=== PATIENT | male | born 1960 | race Caucasian/White ===

== ENCOUNTER → 2017-08-01 10:36 | Outpatient (CLI) | payer BC ==
[2015-04-12 13:59] VITALS: BMI 37.9
[~2017-08-01 10:36] MED LIST: BAYER CHEWABLE81 MG PO; CRESTOR20 MG PO; EFFIENT10 MG PO; NORVASC5 MG PO; PRILOSEC20 MG PO; SYNTHROID75 MCG PO
== END | disposition home or self-care (01) ==
LOC: D.RT 10:36
DX: R06.02 Shortness of breath (principal)

== ENCOUNTER 2018-05-10 07:28 | Day surgery (SDC) | payer BC ==
[~2018-05-10] VITALS: Ht 177.8 cm; Wt 111.1 kg
--- NOTE | ~2018-05-10 | HP ---
PATIENT: JEREMIAH PRAKASH MEDICAL RECORD: [id number] ACCOUNT: [id number] LOCATION:[facility] : 62 ADMISSION DATE: 05/10/18 PCP: HISTORY AND PHYSICAL EXAMINATION HISTORY: Mr. Prakash is a 58-year-old male with hoarseness and dysphagia for a couple of months. He has been noted to have a laryngeal lesion. He is being admitted for direct laryngoscopy and biopsy. PAST MEDICAL HISTORY: Includes hypertension, coronary artery disease, liver disease. PAST SURGICAL HISTORY: Includes cholecystectomy in 2013, three stents in 2015. CURRENT MEDICATIONS: Include ezetimibe, tamsulosin, rosuvastatin, lisinopril, levothyroxine, amlodipine, finasteride, Nexium. Aspirin 81 mg has been held. ALLERGIES: No known drug allergies. PHYSICAL EXAMINATION: GENERAL: He is healthy appearing, good historian. He has got moderate to severely hoarse voice. FACE: Normal, symmetric, no lesions. EYES: Sclerae and conjunctivae are normal. EARS: Canals and TMs are normal. NOSE: He has some septal deviation. No masses, polyps, or drainage. ORAL CAVITY AND OROPHARYNX: He is status post UP3. No trismus. Tongue protrudes in midline. Pharynx is normal. NECK: No masses. He has got some ptotic submandibular glands. Nontender. Flexible laryngoscopy reveals supraglottic fullness, especially on the medial aspect of the right AE fold and some granular changes around even the left side of the AE fold. CHEST: Clear. CARDIOVASCULAR: Regular rate and rhythm. No murmur. EXTREMITIES: Normal. IMPRESSION: Supraglottic laryngeal lesion, hoarseness, dysphagia. PLAN: Direct laryngoscopy and biopsies. TRANSINT:[id number] Voice Confirmation ID: [id number] DOCUMENT ID: [id number] KATTY RAMIREZ MD CC: [id number] DICTATION DATE: 05/08/18 1456 POOL INSTALLER: 05/08/[address] [address]
--- NOTE | ~2018-05-10 | OP ---
PATIENT NAME: JEREMIAH PRAKASH MEDICAL RECORD: [id number] :62 [facility] ADMISS[facility] DATE: SURGEON: YOVANY BROWN MD DATE OF OPERATION: 05/10/2018 PREOPERATIVE DIAGNOSES: Laryngeal lesion and hoarseness. POSTOPERATIVE DIAGNOSES: Laryngeal lesion and hoarseness. PROCEDURE: Direct laryngoscopy and biopsies. SURGEON: Yovany Brown MD ANESTHESIA: General orotracheal. BLOOD LOSS: 1 cc. SPECIMENS: Multiple biopsies from the medial aspect of the right AE fold and medial aspect of the right arytenoid. 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 COMPLICATIONS: None. DISPOSITION: Recovery stable. DESCRIPTION OF PROCEDURE: He was brought to the operating room and placed in supine position, sedated and intubated by anesthesia. The eyes were taped. Table was turned 90 degrees. Head drape was applied and he was positioned for laryngoscopy. Using a headlight, the oral cavity and oropharynx were examined. The base of tongue was palpated. Tonsil fossa was palpated. No lesions were identified. A Kleinsasser J laryngoscope was inserted and used to evaluate the piriforms, postcricoid area, lateral pharyngeal garcia, posterior pharyngeal wall, all were unremarkable. He was missing his lower central mandibular teeth, but had upper teeth and I could expose the arytenoids, but not much further forward, so I changed to an anterior commissure scope and was able to expose the larynx much better. The cords looked good, but he had an exophytic lesion involving the medial surface of the right AE fold, most of the arytenoid on the right, the posterior glottic area extending on to the medial aspect of the left arytenoid as well. Biopsies were taken with an upbiting 2 mm biopsy forceps. Frozen was sent. This returned invasive squamous cell carcinoma. Multiple additional biopsies were taken as well for permanent section and to confirm the diagnosis. The subglottis and upper trachea appeared normal. There really was not very much bleeding. The laryngoscope was removed. He was awakened, extubated, and transported to recovery in good condition. No complications. TRANSINT:[id number] Voice Confirmation ID: [id number] DOCUMENT ID: [id number] OPERATIVE REPORT [id number] JEREMIAH PRAKASH YOVANY BROWN MD CC: [id number] DICTATION DATE: 05/10/18 1307 CEMENT FINISHER HELPER: 12/14/18 1545 [facility] [place] 05/10/18 [facility] [address] [facility] [place] [address]
[~2018-05-10 07:28] MED LIST changes: +PRINIVIL20 MG PO
[2018-05-10 07:47] LABS: HEMATOCRIT 45.9 % (42.0-54.0); HEMOGLOBIN 15.6 g/dL (13.5-17.5); MCH 30.7 pg (26.0-34.0); MCV 90.4 fL (80.0-100.0); MEAN PLATELET VOLUME 11.6 fL (7.4-10.4); RBC 5.08 10x6/uL (4.20-6.10); RDW 13.7 % (11.5-14.5); WBC 5.1 10x3/uL (4.8-10.8)
[2018-05-10 08:54] VITALS: BP 133/80; Ht 177.8 cm; Wt 111.1 kg
== END 2018-05-10 14:10 | disposition home or self-care (01) ==
LOC: D.OPS 07:28 → D.PAN 10:00 → D.OPS 10:00
PROVIDERS: Anesthesiology
DX: C32.9 Malignant neoplasm of larynx, unspecified (principal); I10 Essential (primary) hypertension; I25.10 Atherosclerotic heart disease of native coronary artery without angina pectoris; K76.9 Liver disease, unspecified; Z79.82 Long term (current) use of aspirin; Z79.899 Other long term (current) drug therapy